=== PATIENT | male | born 2000 | race African-American/Black ===

== ENCOUNTER 2019-03-31 11:50 | Inpatient (IN) | payer OTHER ==
[~2019-03-31] VITALS: Ht 177.8 cm; Wt 71.8 kg
[2019-03-31 12:31] LABS: HEMATOCRIT 46.9 % (42.0-52.0); MEAN CORPUSCULAR HEMOGLOBIN 29.5 pg (27.0-33.0); MEAN CORPUSCULAR VOLUME 92.3 fl (80.0-96.0); PLATELET COUNT, AUTOMATED 269 10^3/uL (150-450); RED BLOOD COUNT 5.08 10^6/uL (4.30-6.10); WHITE BLOOD COUNT 6.9 10^3/uL (4.0-10.0)
[2019-03-31 13:01] LABS: AMPHETAMINES LEVEL URINE NEGATIVE (NEGATIVE); BARBITURATES URINE NEGATIVE (NEGATIVE); BENZODIAZEPINES URINE NEGATIVE (NEGATIVE); CANNABINOIDS URINE NEGATIVE (NEGATIVE); COCAINE METABOLITE URINE NEGATIVE (NEGATIVE); METHADONE URINE NEGATIVE (NEGATIVE); OPIATES URINE NEGATIVE (NEGATIVE); PHENCYCLIDINE URINE NEGATIVE (NEGATIVE)
[2019-03-31 13:12] LABS: ACETAMINOPHEN LEVEL < 2.0 UG/ML (10.0-30.0); ALBUMIN 4.3 GM/DL (3.2-5.2); ALT/SGPT 16 U/L (12-78); BILIRUBIN,DIRECT 0.2 MG/DL (0.0-0.2); BILIRUBIN,TOTAL 0.8 MG/DL (0.2-1.0); BLOOD UREA NITROGEN 14 MG/DL (7-18); CALCIUM LEVEL 9.3 MG/DL (8.5-10.1); CARBON DIOXIDE LEVEL 30 MEQ/L (21-32); CHLORIDE LEVEL 105 MEQ/L (98-107); CREATININE FOR GFR 1.19 MG/DL (0.70-1.30); ETHYL ALCOHOL (ETHANOL) 0.005 % (0.000-0.010); GLUCOSE, FASTING 92 MG/DL (70-100); SALICYLATE LEVEL < 1.7 MG/DL (5.0-30.0); SODIUM LEVEL 138 MEQ/L (136-145); TOTAL PROTEIN 7.4 GM/DL (6.4-8.2)
[2019-03-31] MEDS ORDERED: OLANZapine ORAL DISINTEGRATING TAB 5MG PO PRN (16:15)
[2019-03-31] MEDS ORDERED: ACETAMINOPHEN TAB 650MG DOSE (2X325MG) PO PRN (16:15)
[2019-03-31] MEDS ORDERED: MOM 30ML SUSPENSION UDC PO PRN (16:15)
[2019-03-31] MEDS ORDERED: IBUPROFEN 400 MG TAB PO PRN (16:15)
[2019-03-31 18:00] VITALS: BP 133/69
[2019-03-31] MEDS: traZODone 50 MG TAB PO PRN (21:40)
[2019-04-01 06:33] VITALS: BP 110/56
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
[2019-04-01 16:35] VITALS: BP 114/56
[2019-04-01] MEDS: traZODone 50 MG TAB PO PRN (20:19)
--- NOTE | 2019-04-01 21:08 | HPE ---
DATE OF ADMISSION: 04/01/2019 This is a hospitalist history and physical and inpatient mental health unit, Ramón Torres, a 18-year-old who denies any significant past medical history. There is no history of diabetes, hypertension, vascular disease, hematologic illness. FAMILY HISTORY: Mother had hypertension. MEDICATIONS: No outpatient medicines. ALLERGIES: None known. REVIEW OF SYSTEMS: No chest pain, shortness of breath, polyuria, polydipsia, fevers, chills, night sweats, rash. SOCIAL HISTORY: He is a [employer] soldier. Nonsmoker. PHYSICAL EXAMINATION: VITAL SIGNS: Per flow sheet. Pupils equal and reactive to light. Oropharynx benign. NECK: No masses. No thyromegaly. LUNGS: Clear. HEART: Regular without murmur. ABDOMEN: Soft, nontender. No masses. EXTREMITIES: No clubbing, cyanosis, or edema. Normal strength in the arms and legs. No lymphadenopathy. LABORATORY DATA: CBC, CMP unremarkable. TSH minimally elevated at 8.5. IMPRESSION: 1. Subclinical hypothyroidism. I would not treat the minimally elevated thyroid-stimulating hormone (TSH) until there was confirmation that it was actually elevated (many false positive mild elevations of TSH out of [facility]'s lab). Will order a free T and a TSH for the morning. 2, Reactive depression. Treatment per psychiatry.
[2019-04-02 06:11] VITALS: BP 120/59
[2019-04-02 07:48] LABS: FREE T4 0.9 NG/DL (0.78-1.33); THYROID STIMULATING HORMONE 10.7 uIU/ML (0.463-3.98)
--- NOTE | 2019-04-02 10:22 | MHDSPDOC ---
[facility] Discharge Summary Discharge Summary DATE OF ADMISSION: Mar 31, 2019 at 16:01 DATE OF DISCHARGE: DISCHARGE DIAGNOSES: 1. . 2. . REASON FOR ADMISSION: CONSULTANTS INVOLVED: TREATMENT AND PROGRESS ON THE UNIT : . HOSPITAL COURSE: DISCHARGE ASSESSMENT: MENTAL STATUS EXAMINATION ON DISCHARGE: Patient is a -year old male, who is . Speech is . Language skills are . Thought processes including: . Thought content: . Abstract reasoning, and computation: . Description of associations: . Description of abnormal or psychotic thoughts: . Judgment: . Insight: . Orientation to . Recent and remote memory: . Attention span and concentration: . Language: . Fund of knowledge: . Mood: . Affect: . MEDICATIONS ON DISCHARGE: - for . - for . - for . PLAN/FOLLOWUP ARRANGEMENTS: . The amount of time spent in the coordination of care for this patient was approximately minutes. Vital Signs/I&Os Vital Signs Date Time Temp Pulse Resp B/P (MAP) Pulse Ox O2 Delivery O2 Flow Rate FiO2 04/02/19 06:11 98.4 65 16 120/59 (79) 04/01/19 06:33 Room Air 03/31/19 18:00 100 Laboratory Data Labs 24H Laboratory Tests 2 04/02/19 06:31: Thyroid Stimulating Hormone (TSH) 10.700H, Free Thyroxine 0.90 Medications No Active Prescriptions or Reported Meds Allergies Coded Allergies: No Known Allergies (Unverified , 03/31/19) DORON HUGHES DO Apr 02, 2019 10:22
[2019-04-02] MEDS ORDERED: TRAZ-252 PO (11:10)
== END 2019-04-02 11:57 | disposition home or self-care (01) | DRG 882 ==
LOC: M ED 11:50 → M ED INP 16:01 → M PSY 17:10
PROVIDERS: ADMIT Psychiatry & Neurology Addiction Medicine; ATTEND Psychiatry & Neurology Addiction Medicine
DX: F43.25 Adjustment disorder with mixed disturbance of emotions and conduct (principal); F43.10 Post-traumatic stress disorder, unspecified; Z62.810 Personal history of physical and sexual abuse in childhood; E03.9 Hypothyroidism, unspecified

== ENCOUNTER 2019-09-16 21:59 | Emergency (ER) | payer OTHER ==
[~2019-09-16] VITALS: Ht 175.3 cm; Wt 72.3 kg
[~2019-09-16 21:59] MED LIST: TRAZ-252 PO
[2019-09-16 22:00] VITALS: BP 135/77
== END 2019-09-16 22:51 | disposition home or self-care (01) ==
LOC: M ED 21:59
DX: Z03.89 Encounter for observation for other suspected diseases and conditions ruled out (principal); Z87.820 Personal history of traumatic brain injury; Z87.440 Personal history of urinary (tract) infections